=== PATIENT | male | born 1970 | race Caucasian/White ===

== ENCOUNTER 2016-12-23 15:04 | Emergency (ER) | payer MEDICAID ==
[~2016-12-23] VITALS: Ht 172.7 cm; Wt 79.0 kg
[2016-12-23 15:06] VITALS: Ht 172.7 cm; Wt 79.0 kg
[2016-12-23] MEDS ORDERED: KETOROLAC 30 MG INJ IM STA (17:44)
[2016-12-23] MEDS ORDERED: IBUP-1542 PO (17:46)
[2016-12-23] MEDS ORDERED: CARI350T PO (17:46)
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
[2016-12-23 19:50] VITALS: BP 140/83; PULSE 80; RESP 20; TEMP 98.5
== END 2016-12-23 19:51 | disposition home or self-care (01) ==
LOC: E/R 15:04
DX: S16.1XXA Strain of muscle, fascia and tendon at neck level, initial encounter (principal); S33.5XXA Sprain of ligaments of lumbar spine, initial encounter; R07.9 Chest pain, unspecified; R40.2142 Coma scale, eyes open, spontaneous, at arrival to emergency department; R40.2252 Coma scale, best verbal response, oriented, at arrival to emergency department; R40.2362 Coma scale, best motor response, obeys commands, at arrival to emergency department; V49.40XA Driver injured in collision with unspecified motor vehicles in traffic accident, initial encounter
CPT/HCPCS: 93005; 96372; J1885; Z7502